=== PATIENT | male | born 1990 | race Caucasian/White ===

== ENCOUNTER 2017-02-11 00:17 | Emergency (ER) | payer BC ==
[2017-02-11 00:58] LABS: CHLORIDE,CL 100 mEq/L (98-106); SODIUM,NA 140 mEq/L (136-145)
[2017-02-11] MEDS ORDERED: LORazepam 2 MG/ML Syringe IVPUSH ONE (01:00)
[2017-02-11] MEDS ORDERED: Lactated Ringers 1,000 ML IV ONE (01:00)
[2017-02-11] MEDS ORDERED: Acetaminophen 325 MG Tab PO ONE (01:21)
--- NOTE | 2017-02-11 01:30 | EDM.PDOC ---
ED HPI GENERAL MEDICAL PROBLEM - General Chief Complaint: General Stated Complaint: DIZZY, SHAKY, LIGHTHEADED Time Seen by Provider: 02/11/17 00:45 Source of Information: Reports: Patient History Limitations: Reports: No limitations - History of Present Illness INITIAL COMMENTS - FREE TEXT/NARRATIVE: Taran is a 26 yo male who presents to the ER via his mother with concerns of being lightheaded and feeling palpitations in his chest. States it started around 11:00 this morning and really hasn't went away. States he was flying home from [place] and mid-flight it started to bother him. States he had a difficult time getting comfortable. Denies any shortness of breath or chest pain. States they landed in [place] this evening and drove home to [place], [place] from there. He thought for a little while it may have been going away but never really did. States he drank a lot of alcohol over the weekend for a bachelor libertarian in [place]. States it was pretty much continuous thru out the entire weekend. Denies any energy drinks that he is aware of. No illicit drug use. States it was mostly beer and water all weekend. Quit drinking early this morning. Onset: today Onset Date: 02/11/17 Onset Time: 11:00 Duration: Constant Location: Reports: chest - Related Data Allergies Allergy/AdvReac Type Severity Reaction Status Date / Time troleandomycin [From Elio] Allergy Other Verified 02/11/17 00:19 Home Meds: Home Meds . [No Known Home Meds] 02/11/17 [History] Past Medical History - Past Health History Medical/Surgical History: Denies Medical/Surgical History Social & Family History - Tobacco Use Smoking Status *Q: Never Smoker - Caffeine Use Caffeine Use: Reports: None - Alcohol Use Days Per Week of Alcohol Use: 2 Number of Drinks Per Day: 5 Total Drinks Per Week: 10 - Recreational Drug Use Recreational Drug Use: No ED ROS GENERAL - Review of Systems Review Of Systems: See Below Constitutional: Reports: fever, diaphoresis HEENT: Reports: No symptoms Respiratory: Denies: Shortness of Breath Cardiovascular: Reports: Palpitations. Denies: Chest pain, Blood pressure problem, Dyspnea on exertion, Edema GI/Abdominal: Reports: No symptoms : Reports: no symptoms Musculoskeletal: Reports: no symptoms Neurological: Reports: No Symptoms Psychiatric: Reports: No symptoms ED EXAM, GENERAL - Physical Exam Exam: See Below Exam Limited By: No limitations General Appearance: alert, anxious, mild distress Ears: normal external exam, normal canal, hearing grossly normal, normal TMs Nose: normal inspection, normal mucosa, no blood Throat/Mouth: Normal inspection, Normal lips, Normal teeth, Normal gums, Normal oropharynx, Normal voice, No airway compromise Head: atraumatic, normocephalic Neck: normal inspection, supple Respiratory/Chest: no respiratory distress, lungs clear, normal breath sounds, no accessory muscle use Cardiovascular: normal peripheral pulses, regular rate, rhythm, no edema, no murmur GI/Abdominal: normal bowel sounds, soft, non tender, no organomegaly, no distention Neurological: alert, oriented, normal cognition, no motor/sensory deficits Psychiatric: normal affect, normal mood, anxious Skin Exam: Normal color, No rash, Diaphoretic, Increased warmth EKG INTERPRETATION EKG Date: 02/11/17 Rhythm: NSR Course - Vital Signs Last Recorded V/S: Last Vital Signs Temp 98.0 F 02/11/17 02:14 Pulse 79 02/11/17 02:14 Resp 18 02/11/17 02:14 BP 146/86 H 02/11/17 02:14 Pulse Ox 97 02/11/17 02:14 - Orders/Labs/Meds Orders: Active Orders 24 hr Category Date Time Status Lactated Ringers [Ringers, Lactated] 1,000 ml Med 02/11/17 02:30 Active IV ASDIRECTED Medication Orders Lactated Ringer's (Ringers, Lactated) 1,000 mls @ 150 mls/hr IV ASDIRECTED ARNOL Last Admin: 02/11/17 02:51 Dose: 150 mls/hr Labs: Laboratory Tests 02/11/17 02/11/17 Range/Units 00:40 00:40 WBC 7.1 (5.0-10.0) 10^3/uL RBC 5.05 (4.50-6.00) 10^6/uL Hgb 14.9 (14.0-18.0) g/dL Hct 43.7 (40.0-54.0) % MCV 86.5 (82.0-94.0) fL MCH 29.5 (27.0-32.0) pg MCHC 34.1 (33.0-38.0) g/dL RDW Coeff of Alan 13.0 (11.0-15.0) % Plt Count 209 (150-400) 10^3/uL Neut % (Auto) 60.6 (35-85) % Lymph % (Auto) 21.8 (10-55) % Oliver % (Auto) 16.6 H (0-16) % Eos % (Auto) 0.6 (0-5) % Baso % (Auto) 0.4 (0-3) % Neut # (Auto) 4.31 (1.80-7.00) 10^3/uL Lymph # (Auto) 1.55 (1.00-4.80) 10^3/uL Oliver # (Auto) 1.18 H (0.00-0.80) 10^3/uL Eos # (Auto) 0.04 (0.00-0.45) 10^3/uL Baso # (Auto) 0.03 10^3/uL Sodium 140 (136-145) mEq/L Potassium 3.7 (3.5-5.0) mEq/L Chloride 100 (98-106) mEq/L Carbon Dioxide 29 (21-32) mmol/L BUN 7 (7-18) mg/dL Creatinine 1.1 (0.7-1.3) mg/dL Est Cr Clr Drug Dosing 108.39 mL/min Estimated GFR (MDRD) > 60 (>=60) mL/min Glucose 121 H (75-99) mg/dL Calcium 8.8 (8.4-10.1) mg/dL Total Bilirubin 0.8 (0.0-1.0) mg/dL AST 42 H (15-37) U/L ALT 72 (12-78) U/L Alkaline Phosphatase 69 (46-116) U/L Creatine Kinase 324 H (35-232) U/L Troponin I < 0.017 (0.00-0.06) ng/mL C-Reactive Protein < 0.2 L (0.2-0.8) mg/dL Total Protein 7.5 (6.4-8.2) g/dL Albumin 3.9 (3.4-5.0) g/dL Meds: Medications Generic Name Dose Route Start Last Admin Trade Name Freq PRN Reason Stop Dose Admin Lactated Ringer's 1,000 mls @ 150 mls/hr 02/11/17 02:30 02/11/17 02:51 Ringers, Lactated IV 150 mls/hr ASDIRECTED ARNOL Administration Discontinued Medications Generic Name Dose Route Start Last Admin Trade Name Ryan PRN Reason Stop Dose Admin Acetaminophen 650 mg 02/11/17 01:21 02/11/17 01:33 Tylenol PO 02/11/17 01:22 650 mg NOW ONE Administration Lactated Ringer's 1,000 mls @ 999 mls/hr 02/11/17 01:00 02/11/17 01:32 Ringers, Lactated IV 02/11/17 02:00 999 mls/hr .BOLUS ONE Administration Lorazepam 1 mg 02/11/17 01:00 02/11/17 01:32 Ativan IVPUSH 02/11/17 01:01 1 mg ONETIME ONE Administration - Re-Assessments/Exams Free Text/Narrative Re-Assessment/Exam: 02/11/17 01:34 EKG and laboratory findings were stable. Discussed laboratory findings with Taran and his mother. Discussed receiving IV fluids and keeping for extended ER at this time to see how he does. Will give Ativan 1mg IV to help with anxiety as well. 02/11/17 07:34 Taran is doing well this morning. States he feels a lot better this morning. Denies any dizziness or lightheadedness presently. States he is still running a low grade fever. Requests to go home at this time. Departure - Departure Time of Disposition: 07:35 Disposition: Home, Self-Care 01 Clinical Impression: Light-headed feeling, Fever of unknown origin Referrals: Provider,Unknown [Primary Care Provider] - Forms: ED Department Discharge Additional Instructions: 1) Rest today 2) Push fluids, recommend refraining from any alcohol for at least 72 hours. 3) Alternate Tylenol with ibuprofen for fever every 4 hours 4) Recheck in 1 week in clinic, sooner if any concerns or return of symptoms. - Problem List & Annotations (1) Fever of unknown origin SNOMED Code(s): 3746525 Code(s): R50.9 - FEVER, UNSPECIFIED Status: Acute Current Visit: Yes (2) Light-headed feeling SNOMED Code(s): 581534243 Code(s): R42 - DIZZINESS AND GIDDINESS Status: Acute Current Visit: Yes - Problem List Review Problem List Initiated/Reviewed/Updated: Yes - My Orders Last 24 Hours: My Active Orders 02/11/17 02:30 Lactated Ringers [Ringers, Lactated] 1,000 ml IV ASDIRECTED - Assessment/Plan Last 24 Hours: My Active Orders 02/11/17 02:30 Lactated Ringers [Ringers, Lactated] 1,000 ml IV ASDIRECTED Plan: Taran is feeling a lot better this morning and is afebrile currently. Will discharge home with instructions. Advised to return if any concerns or return of symptoms.
[2017-02-11 02:15] VITALS: BP 146/86
[2017-02-11] MEDS ORDERED: Lactated Ringers 1,000 ML IV SCH (02:30)
== END 2017-02-11 08:00 | disposition home or self-care (01) ==
LOC: CC.ED 00:17
DX: R42 Dizziness and giddiness (principal); R50.9 Fever, unspecified; Z88.8 Allergy status to other drugs, medicaments and biological substances
CPT/HCPCS: 36415; 80053; 82550; 84484; 85025; 86140; 93005; 96361; 96374; 99284; A9270; J2060; J7120; 96365; 96366; 96375